=== PATIENT | male | born 1955 | race Caucasian/White ===

== ENCOUNTER 2016-04-24 04:12 | Emergency (ER) | payer SELFPAY ==
[~2016-04-24] VITALS: Ht 167.6 cm; Wt 85.0 kg
[2016-04-24 05:01] VITALS: Ht 167.6 cm; Wt 85.0 kg
== END 2016-04-24 06:43 | disposition left against medical advice (07) ==
LOC: FTE 04:12
DX: Z53.21 Procedure and treatment not carried out due to patient leaving prior to being seen by health care provider (principal)